=== PATIENT | female | born 1960 | race Two or more races ===

== ENCOUNTER → 2022-06-26 | Day surgery (SDC) | payer MEDICAID ==
[2022-06-24 09:53] LABS: Basophils # (auto) 0.1 10 ^3/uL (0-0.2); Eosinophils # (auto) 0.2 10 ^3/uL (0-0.8); Lymphocytes # (auto) 1.6 10 ^3/uL (0.4-5.4); Monocytes # (auto) 0.6 10 ^3/uL (0-1.3); White Blood Cell 5.1 10^3/uL (4.4-10.8)
[2022-06-24 09:58] LABS: Eosinophils % (auto) 4.5 % (0.0-7.0); Hematocrit 39.4 % (36.0-46.0); Hemoglobin 12.8 g/dL (12.2-16.2); Lymphocytes % (auto) 30.7 % (10.0-50.0); Mean Corpuscular Hgb Conc. 32.4 g/dL (32.0-36.0); Mean Corpuscular Volume 80.4 fL (80.0-100.0); Neutrophils # (auto) 2.6 10 ^3/uL (1.6-8.6); Neutrophils % (auto) 51.8 % (37.0-80.0); Nucleated Red Blood Cells % 0.1 %; Red Cell Distribution Width 15.5 % (11.8-14.3)
[2022-06-24 10:44] LABS: Albumin 3.8 g/dL (3.4-5.0); Calcium 8.7 mg/dL (8.5-10.1); Potassium 3.8 mmol/L (3.5-5.1)
[2022-06-24 10:47] LABS: BUN/Creatinine Ratio 14.3; Bilirubin, Total 0.6 mg/dL (0.2-1.0); Total Protein 7.7 g/dL (6.4-8.2)
[2022-06-24 10:48] LABS: INR 1.04 (0.9-1.15); Partial Thromboplastin Time 26.2 sec (24.6-33.4)
[~2022-06-26] VITALS: Ht 175.3 cm; Wt 105.7 kg
[~2022-06-26] MED LIST: INSLISPI SC; INSU1INJ19 SC; LIRA18IN2 SUBCUT; LISI20TA28 PO; MIDAZOLAM HCL 5 MG/ML-1ML VIAL ONE; POTA-220 PO; PRAV20TA3 PO; fentaNYL CITRATE 100 MCG/2 ML VL ONE
[2022-06-26] MEDS: diphenhdrAMINE HCL 50 MG/1 ML VL ONE ×2 (13:04→13:16)
[2022-06-26] MEDS: fentaNYL CITRATE 100 MCG/2 ML VL ONE ×3 (13:04→13:19)
[2022-06-26] MEDS: MIDAZOLAM HCL 5 MG/ML-1ML VIAL ONE ×3 (13:04→13:19)
[2022-06-26 14:30] VITALS: BP 132/85
== END | disposition home or self-care (01) ==
LOC: GI 12:14
PROVIDERS: ATTEND Internal Medicine Gastroenterology
DX: R19.5 Other fecal abnormalities (principal); K64.8 Other hemorrhoids; K63.89 Other specified diseases of intestine; G47.30 Sleep apnea, unspecified; E11.40 Type 2 diabetes mellitus with diabetic neuropathy, unspecified; Z90.710 Acquired absence of both cervix and uterus; Z80.0 Family history of malignant neoplasm of digestive organs; Z86.010 Personal history of colon polyps; Z98.890 Other specified postprocedural states; Z79.899 Other long term (current) drug therapy; Z87.891 Personal history of nicotine dependence; Z20.822 Contact with and (suspected) exposure to COVID-19
CPT/HCPCS: 36415; 45378; 80053; 82962; 85025; 85610; 85730; J1200; J2250; J3010; U0003; 99152